=== PATIENT | female | born 1930 | race Caucasian/White ===

== ENCOUNTER 2017-09-18 13:30 | Outpatient (RCR) | payer OTHER | END 2017-09-25 | disposition home or self-care (01) | LOC: PTY 13:30 | DX: M17.0 Bilateral primary osteoarthritis of knee (principal) ==

== ENCOUNTER 2017-10-07 14:30 | Outpatient (RCR) | payer OTHER | END 2017-10-26 | disposition home or self-care (01) | LOC: PTY 14:30 | DX: M17.0 Bilateral primary osteoarthritis of knee (principal) | CPT/HCPCS: 97110; 97140; G0283 ==

== ENCOUNTER 2017-11-04 13:05 | Outpatient (RCR) | payer OTHER | END 2017-11-25 | disposition home or self-care (01) | LOC: PTY 13:05 | DX: M17.0 Bilateral primary osteoarthritis of knee (principal) ==